=== PATIENT | female | born 1955 | race Caucasian/White ===

== ENCOUNTER → 2024-11-28 09:07 | Outpatient (REF) | payer MEDICARE, OTHER, SELFPAY ==
[2024-11-28 10:02] LABS: % Basophils 0.6 % (0-2); % Eosinophils 1.6 % (0-6); % Immature Granulocytes 0.2 % (0-0.5); % Lymphocytes 19.1 % (20.5-51.1); % Monocytes 10.5 % (1.7-9.3); Absolute Eosinophils 0.1 10^3/uL (0-0.7); Absolute Lymphocytes 0.9 10^3/uL (1.2-3.4); Absolute Monocytes 0.5 10^3/uL (0.1-0.6); Absolute Neutrophils 3.3 10^3/uL (1.4-6.5); Hematocrit 37.9 % (37.0-47.0); Hemoglobin 12.4 g/dL (12.0-16.0); Mean Corp Hgb Conc. 32.7 g/dL (33.0-37.0); Mean Corpuscular Hgb 31.7 pg (27.0-31.0); Mean Corpuscular Volume 96.9 fL (81.0-99.0); Mean Platelet Volume 9.6 fL (7.4-10.4); Nucleated Red Blood Cells % 0 %; Platelet Count 296 10^3/uL (130-400); Red Blood Cell Count 3.91 10^6/uL (4.20-5.40); Red Cell Dist. Width 13.9 % (11.5-14.5); White Blood Cell Count 4.9 10^3/uL (4.8-10.8)
[2024-11-28 10:13] LABS: INR 1.08; PT 14.4 Sec (11.4-14.6)
[2024-11-28 10:39] LABS: ALT (SGPT) 20 U/L (0-35); AST (SGOT) 29 U/L (14-36); Albumin 4.7 g/dl (3.5-5.0); Alkaline Phosphatase 50 U/L (38-126); Blood Urea Nitrogen 16 mg/dl (7-17); Calcium 9.4 mg/dl (8.4-10.2); Carbon Dioxide 29 mmol/L (22-30); Chloride 106 mmol/L (98-107); Glucose 86 mg/dl (70-99); Magnesium 2.1 mg/dl (1.6-2.3); Potassium 4.1 mmol/L (3.5-5.1); Sodium 141 mmol/L (135-145); Total Bilirubin 0.6 mg/dl (0.2-1.3); Total Protein 7.5 g/dl (6.3-8.2); eGFR > 60.00
== END ==
LOC: SDSPAT 09:07
PROVIDERS: ATTENDING PHYSICIAN Internal Medicine Cardiovascular Disease; FAMILY PHYSICIAN Family Medicine; OTHER PHYSICIAN Internal Medicine Cardiovascular Disease; OTHER PHYSICIAN Internal Medicine Rheumatology
DX: I48.91 Unspecified atrial fibrillation (principal)
CPT/HCPCS: 36415; 75572; 80053; 83735; 85025; 85610; 86850; 86900; 86901; 93005; Q9967

== ENCOUNTER 2024-12-12 07:55 | Day surgery (SDC) | payer MEDICARE, OTHER, SELFPAY ==
[2024-11-28 09:19] VITALS: BMI 17.8
[2024-12-12] VITALS (12 sets, daily range): BP systolic 95–143; BP diastolic 58–90
[2024-12-12 11:11] LABS: ACT-LR - POC 268 Seconds (116-155)
[2024-12-12 11:36] LABS: ACT-LR - POC 313 Seconds (116-155)
--- NOTE | 2024-12-12 12:09 | ITS.CL.ABL ---
Medical Customer Service Representative - Ablation
Ablation
Procedure Report:
ELECTROPHYSIOLOGY ABLATION STUDY
DATE:: December 12, 2024�����������������������������REFERRING: Dr. Babcock
INDICATION: Paroxysmal supraventricular tachycardia in the form of atrial fibrillation.��As above
HISTORY: See H and P.� As above
ANTIARRHYTHMIC DRUG: Discussed class I and class III antiarrhythmic drug therapy and the patient opted for pulmonary vein isolation
PRE-PROCEDURE SHANICE: No atrial thrombus
PRESENTING RHYTHM: Sinus bradycardia
'TIME-OUT':��called and confirmed.
SEDATION/ANESTHESIA:��provided via the anesthesia department using general anesthesia (LMA).
INTRAVENOUS/ARTERIAL ACCESS:
Right femoral venous - 8Fr
Left femoral venous - 8 Fr, 6 Fr
Ultrasound guidance for bilateral femoral vein access was utilized by me to obtain access with demonstration of normal anatomy
CHADS-VASC Score:
HAS-Bled Score
PROCEDURE:
1.��A decapolar CS catheter was placed within the CS for mapping and pacing.��This was also used as the reference catheter for the 3-D map.
2. The intracardiac ultrasound catheter was positioned in the RA to identify the FO for targeting of transseptal puncture, assist��in identification of the pulmonary vein ostia, monitoring pre and post ablation pulmonary vein flow velocities,
monitoring for 'bubble' formation during RF application as a sign of thermal injury,��and to monitor for pericardial effusion during mapping and ablation procedure.���Left atrial size, LV ejection fraction, and pulmonary vein flows were monitored
pre and post ablation procedure. The other valves were inspected and found to be free of significant regurgitation or stenosis.
3.��Half of the calculated heparin bolus was administered prior to the first transeptal puncture.��Transseptal puncture was performed to diagnose RA and LA pressure so that safety of LA mapping and ablation could be further assessed, and to access
the left atrium and pulmonary veins for mapping and ablation.��This entailed advancing an 16.8 [place] RF wire, sheath with dilator into the superior vena cava and withdrawing both (monitoring intracardiac ultrasound, fluoroscopy and tip pressure)
with the tip oriented toward the atrial septum.��The fossa ovalis was engaged (indicated by sudden displacement of the sheath tip as well as tenting of the fossa seen on intracardiac ultrasound).��Left atrial access required a pass with the
Brockenbrough needle extended.��Left atrial catheter position was confirmed by pressure monitoring (RA mean pressure 6 mm Hg and LA mean presure 8 mm Hg), LA saturation (99%),��as well as fluoroscopy.��The sheath was advanced over the dilator and
positioned in the left atrium.��This procedure was repeated for the Agilis sheath.��The remainder of the calculated heparin bolus was administered and heparin was
infused to maintain ACT at 300 -350 seconds throughout the case.
4.��RA pacing was performed via the proximal decapolar poles and LA pacing was performed via the distal decapolr poles.
5. A quadrapolar catheter was first positioned at the His position for His Bundle recording which was tagged via the 3-D Navex sytem, and then passed to the RVA for RV pacing and recording.
6. The grid and Penta spline catheter placed in each of the LIPV, LSPV, RSPV and the RIPV.��
7.��Next, a 3-D map was created using Navex.���A 3-D reconstructed CT image was compared to the 3-D Navex map to assist in anatomic interpretation, mapping and ablation.��The CT image and the NavX image were fused.
8. Total 49 lesions were given to the pulmonary veins and all of in basket pose and the roof, posterior wall, and floor of the left atrium were given in flower pose for entrance next block achieved in all 4 pulmonary veins as well as the roof
posterior wall and floor of the left atrium.
Dual noemi physiology was present after ablation but no SVT mechanism was seen.
9. Normal sinus node and AV noemi function were noted.
TOTAL FLOURO TIME: 14.1 minutes 143 mGy
TOTAL RF DURATION: 0 minutes
REVERSAL OF HEPARIN: 35 mg of protamine, slow IV administration
COMPLICATIONS:
None
Intracardiac US shows no pericardial effusion post ablation.
SUMMARY:��
Complex left atrial mapping and ablation.
Isolation of all 4 pulmonary veins as well as roof floor and posterior wall of the left atrium
RECOMMENDATIONS:
1. Ambulate in 4 hours
2. Resume anticoagulation
3.��Consider same-day discharge
4.��No changes in medications
Copy to: Dr. Babcock
--- NOTE | 2024-12-12 14:55 | W.PN.UPDATE ---
Update Note
Progress Note Update
Pt seen post PFA. Bilat groin sites without ht/bleeding, non tender. Post EKG NSR 64, no acute changes. Resume eliquis tonight at usual time. Followup with Dr. Babcock as scheduled. Home later today if groin site/tele remain stable.
== END 2024-12-12 17:01 | disposition home or self-care (01) ==
LOC: CATH 07:55
PROVIDERS: ATTENDING PHYSICIAN Internal Medicine Cardiovascular Disease; FAMILY PHYSICIAN Family Medicine; OTHER PHYSICIAN Internal Medicine Cardiovascular Disease
DX: I48.0 Paroxysmal atrial fibrillation (principal); I47.19 Other supraventricular tachycardia; I48.92 Unspecified atrial flutter; F41.9 Anxiety disorder, unspecified; M81.0 Age-related osteoporosis without current pathological fracture; Z88.8 Allergy status to other drugs, medicaments and biological substances; Z98.890 Other specified postprocedural states; E03.9 Hypothyroidism, unspecified; Z79.01 Long term (current) use of anticoagulants
CPT/HCPCS: C1732; C1894; C1730; 85347; 86900; 86901; 93005; 93656; 93657; C1733; C1766

== ENCOUNTER 2025-04-09 10:50 | Emergency (ER) | payer MEDICARE, OTHER, SELFPAY ==
[2025-04-09] VITALS (7 sets, daily range): BP systolic 94–120; BP diastolic 60–78; BMI 17.8
--- NOTE | 2025-04-09 10:58 | ED.GENMED ---
History of Present Illness
General
Chief Complaint: Chest Pain
Source: patient and spouse
Exam Limitations: none
Time Seen by Provider: 04/09/25 10:58
Nursing documentation reviewed up to this point in time: agreed with
History of Present Illness
History of Present Illness:
Note:
CHIEF COMPLAINT(S)
Shortness of breath and a feeling of tightness in the chest.
HISTORY OF PRESENT ILLNESS
The patient is a 70-year-old female who presents with complaints of shortness of breath and a sensation of tightness across the chest. The symptoms have not been previously experienced by the patient. The patient reports that the symptoms started
the day before the visit with a painful sensation in the stomach, described as severe gas pain, although no relief was noted after usual interventions. The patient is on Eliquis (apixaban) and expressed concern about a potential pulmonary embolism
(PE) despite this medication, especially given the recent onset of symptoms. She denies any history of smoking following her cardioversion procedure. The patients electrocardiogram (EKG) and lung examination were reportedly normal upon initial
evaluation.
PAST MEDICAL AND SURGICAL HISTORY
The patient has a history of cardiac ablation and is currently on Eliquis for anticoagulation. There was no mention of a recent cardiac catheterization.
MEDICATIONS
Eliquis (apixaban).
PHYSICAL EXAM
General: Alert, no acute distress.
Skin: Warm, dry.
Head: Normocephalic, atraumatic.
Neck: Supple, trachea midline.
Eye Ears, nose, mouth and throat: Oral mucosa moist.
Cardiovascular: Normal peripheral perfusion, No edema.
Respiratory: Respirations are non-labored.
Gastrointestinal: Abdomen nondistended.
Back: Normal range of motion, Normal alignment.
Musculoskeletal: Normal range of motion, normal strength.
Neurological: Alert and oriented to person, place, time, and situation, No focal neurological deficit observed.
Psychiatric: Cooperative, appropriate mood & affect.
PLAN
The patient will undergo a screening test for blood clots to assess for a potential PE. An X-ray will be performed to evaluate the heart and lungs further.
DIFFERENTIAL DIAGNOSIS
The Differential Diagnosis includes, in no particular order and is not limited to:
1. Pulmonary embolism
2. Coronary artery disease
3. Gastroesophageal reflux disease (GERD)
4. Heart failure
5. Pericarditis
6. Costochondritis
7. Anxiety-related hyperventilation
8. Pneumonia
9. Pleural effusion
10. Aortic stenosis
CARE-UPDATE
04/09/25 - 14:05
The patient shows no signs of acute coronary syndrome or pulmonary embolism, and pancreatitis is not suspected. Pain has resolved completely. The patient is stable and should follow up with their harvesting contractor in primary care. Advised to return if
any concerning symptoms develop.
EKG
My independent EKG interpretation is:
- Time of EKG: Not specified
- Rhythm: Normal sinus rhythm
- Heart Rate: Not specified
- CA Interval: Normal
- QRS Duration: Normal
- QT Interval: Normal
- [place]: Normal
- Abnormalities: None observed, no signs of ischemia
Disposition:
SUMMARY OF ENCOUNTER
The patient, a 70-year-old female, presented to the emergency department with shortness of breath and chest tightness. Initial evaluation included a normal EKG and lung examination. The patient was concerned about a potential pulmonary embolism,
despite being on apixaban for a history of atrial fibrillation. In the emergency department, the assessment included normal vital signs and resolution of symptoms. No acute coronary syndrome or pulmonary embolism was suspected. The patient was
monitored and shown to be stable.
DISPOSITION
Discharge home.
PLAN
The patient will follow up with her harvesting contractor. She was advised to continue taking apixaban as prescribed and to return to the emergency department if any new or concerning symptoms develop.
FOLLOW-UP INSTRUCTIONS
The patient should contact the office to schedule a follow-up visit with her harvesting contractor.
MEDICATION RECONCILIATION
The patient is to continue apixaban (Eliquis) as previously prescribed. No new prescriptions were provided.
MEDICAL DECISION MAKING
-Number and Complexity of Problems Addressed: Chronic conditions affecting care include past medical history of atrial fibrillation and the use of apixaban. Differential Diagnoses considered included pulmonary embolism, coronary artery disease,
gastroesophageal reflux disease (GERD), heart failure, pericarditis, costochondritis, anxiety-related hyperventilation, pneumonia, pleural effusion, and aortic stenosis.
-Data:
Category 2: My independent interpretation of the EKG indicated normal sinus rhythm, with no abnormalities.
-Risk: Consideration of Admission/Observation: Escalation of care including admission/observation was considered given the complexity and risk of the patients presenting complaint, exam findings, and/or their underlying comorbidities. However,
ultimately, I feel the patient is safe for outpatient management with close follow-up. Reasoning: Work-up reassuring, does not reveal any acute life/organ threatening processes, patients symptoms well controlled upon reevaluation, reexamination is
reassuring, vitals are stable, patient agreeable with discharge, reliable for follow-up.
DIAGNOSIS
Chest pain, unspecified (ICD-10 R07.9)
Past History
Past History
ED Past Medical History: Hyperthyroidism and Other (Chronic headaches, pancreatitis, glaucoma)
ED Past Surgical History:
Social History
Tobacco: Non-smoker
Alcohol: Occasional
Drug: None
Personal:
Living: with family
Family History
Family History: Other
Phy Exam
Physical Exam
Physical Exam:
.
Scores
Heart Score for Chest Pain Patients
STEMI patient?: No
History: Slightly or Non-Suspicious
ECG: Normal
Age: >/= 65 years
Risk Factors: 1 or 2 Risk Factors
Troponin: </= Normal Limit
Heart Score for Chest Pain Patients: 3
Heart Score Risk: 2.5% MACE over next 6 weeks
Course
Orders/Labs/Results
Orders:
Orders
04/09/25 10:56
EKG [Electrocardiogram (*1)] Urgent
Reason for Study: Tachycardia
04/09/25 10:57
EKG- Treatment ONCE
04/09/25 11:02
Complete Blood Count/With Diff Urgent
Comprehensive Metabolic Panel Urgent
D-Dimer Urgent
Comment: ADD
Lipase Urgent
PT/INR [Prothrombin Time] Urgent
Troponin I Urgent
04/09/25 11:17
Add On- LAB Urgent
Tests Added?: d-dimer
04/09/25 11:18
CR Chest - 2 Views Urgent
Comment:
Reason For Exam: chest pain
Abnormal Lab Results
04/09/25
11:02
RBC 3.93 L 10^6/uL
(4.20-5.40)
MCH 31.6 H pg
(27.0-31.0)
MCHC 32.2 L g/dL
(33.0-37.0)
RDW 14.6 H %
(11.5-14.5)
Absolute Neuts (auto) 8.7 H 10^3/uL
(1.4-6.5)
Absolute Lymphs (auto) 0.6 L 10^3/uL
(1.2-3.4)
Absolute Monos (auto) 0.9 H 10^3/uL
(0.1-0.6)
Neutrophils % 84.8 H %
(42.2-75.2)
Lymphocytes % 5.4 L %
(20.5-51.1)
PT 14.9 H Sec
(11.4-14.6)
Carbon Dioxide 31 H mmol/L
(22-30)
Glucose 101 H mg/dl
(70-99)
04/09/25 11:02
04/09/25 11:02
Vital Signs
Initial and Last Documented VS:
Initial Vital Signs
Temp Pulse Resp BP Pulse Ox
98.3 F 80 16 120/69 100
04/09/25 10:51 04/09/25 10:51 04/09/25 10:51 04/09/25 10:51 04/09/25 10:51
Last Documented Vital Signs
Temp Pulse Resp BP Pulse Ox
98.3 F 81 15 101/60 100
04/09/25 10:51 04/09/25 14:00 04/09/25 14:00 04/09/25 14:00 04/09/25 14:05
*Pulse Oximetry
SaO2: 100
Oxygen Mode of Delivery: Room air
Patient hypoxic: no
*Critical Care Note
Total Time (30-74mins, 75-104mins- exclusive of procedures): Not Applicable
ED Attending Note
-
Portions of this chart may have been created with voice recognition software.� Occasional wrong word or��sound alike� substitutions may have occurred due to the inherent limitations of voice recognition software.
Discharge Plan
Departure
Patient Disposition: Home (Routine Discharge)
Date of Disposition: 04/09/25
Time of Disposition: 14:02
Patient with high blood pressure during this ER visit?: No
Condition: Good
Discharge Problem:
Chest pain
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
Prescriptions:
No Action
levothyroxine 50 MCG tablet
50 mcg PO SUTUWETHSA
Tension Headache 500-65 mg Tablet
1 tab PO PRN PRN (Reason: headaches)
brinzolamide 1 % Drops,Suspension
1 drp LEFT EYE BID
flaxseed oil 1,000 mg Capsule
1,000 mg PO QPM
lactase [Dairy Relief] 9,000 unit Tablet
9,000 unit PO PRN PRN (Reason: when she eats dairy)
levothyroxine 50 mcg Tablet
75 mcg PO MOFR
docusate sodium [Colace] 100 mg Capsule
100 mg PO BID
simethicone 125 mg Tablet
125 mg PO TIDPRN PRN (Reason: constipation)
timolol maleate 0.5 % drops
1 drp LEFT EYE BID
ascorbic acid (vitamin C) [Vitamin C] 500 mg Tablet Extended Release
500 mg PO DAILY
Multivitamin 50 Plus Tablet
1 tab PO DAILY
psyllium husk [Fiber-Caps (psyllium husk)] 0.52 gram Capsule
1 g PO QPM
Systane (PF) 0.4-0.3 % Dropperette
1 drp OPHTHALMIC (EYE) 6XD PRN (Reason: dryness)
calcium carbonate-vitamin D3 [Calcium 500 + D] 500 mg-10 mcg (400 unit) Tablet
1 tab PO QPM
Eliquis 5 mg Tablet
5 mg PO BID
Vyzulta 0.024 % Drops
1 drp LEFT EYE HS
Evenity 105 mg/1.17 mL Syringe
210 mg SC QMONTH
Probiotic 3 billion cell Capsule
3,000 mmu cells PO DAILY
metoprolol tartrate 25 mg Tablet
12.5 mg PO BID
Referrals:
Abigail Santos DO [Family Provider, Family Practice]
Interventions
Interventions:
*Risk Screen - Suicide Last Done: 04/09/25 10:51
*General Assessment Last Done: 04/09/25 10:51
*Neglect/Abuse Screening Last Done: 04/09/25 10:51
*ED- Fall Risk Assessment Last Done: 04/09/25 10:51
*ED COVID-19 Vaccine History Last Done: 04/09/25 10:51
*ED Influenza Vaccine History Last Done: 04/09/25 10:51
ED- Cardiac Assessment Last Done: 04/09/25 10:59
Discharge Date and Time
Print Language: JAPANESE
[2025-04-09 11:24] LABS: Hematocrit 38.5 % (37.0-47.0); Hemoglobin 12.4 g/dL (12.0-16.0); Mean Corp Hgb Conc. 32.2 g/dL (33.0-37.0); Mean Corpuscular Volume 98.0 fL (81.0-99.0); Nucleated Red Blood Cells % 0 %; Platelet Count 266 10^3/uL (130-400); Red Cell Dist. Width 14.6 % (11.5-14.5)
[2025-04-09 11:33] LABS: ALT (SGPT) 20 U/L (0-35); AST (SGOT) 27 U/L (14-36); Albumin 4.4 g/dl (3.5-5.0); Blood Urea Nitrogen 16 mg/dl (7-17); Calcium 9.1 mg/dl (8.4-10.2); Carbon Dioxide 31 mmol/L (22-30); Chloride 104 mmol/L (98-107); Estimated Creatinine Clearance 59 ml/min; Glucose 101 mg/dl (70-99); Lipase 119 U/L (23-300); Potassium 4.0 mmol/L (3.5-5.1); Sodium 139 mmol/L (135-145); Total Protein 7.4 g/dl (6.3-8.2); eGFR > 60.00
[2025-04-09 11:40] LABS: INR 1.14; PT 14.9 Sec (11.4-14.6)
[2025-04-09 11:42] LABS: Alkaline Phosphatase 54 U/L (38-126)
[2025-04-09 11:44] LABS: Troponin I < 0.012 ng/ml
[2025-04-09 12:15] LABS: D-Dimer < 0.27 ug/mlFEU (0.00-0.50)
== END 2025-04-09 14:28 | disposition home or self-care (01) ==
LOC: EMR 10:50
PROVIDERS: EMERGENCY PHYSICIAN Emergency Medicine; FAMILY PHYSICIAN Family Medicine
DX: R07.9 Chest pain, unspecified (principal); R00.0 Tachycardia, unspecified; I48.91 Unspecified atrial fibrillation; H40.9 Unspecified glaucoma; E05.90 Thyrotoxicosis, unspecified without thyrotoxic crisis or storm; Z79.01 Long term (current) use of anticoagulants
CPT/HCPCS: 99284; 71046; 80053; 83690; 84484; 85025; 85379; 85610; 93005

== ENCOUNTER 2025-04-09 18:17 | Emergency (ER) | payer MEDICARE, OTHER, SELFPAY ==
[2025-04-09 18:31] VITALS: BP 133/67
--- NOTE | 2025-04-09 20:11 | ED.GENMED ---
History of Present Illness
General
Chief Complaint: Chest Problem
Source: patient
Exam Limitations: none
Time Seen by Provider: 04/09/25 20:09
History of Present Illness
History of Present Illness:
70-year-old female complaining of ongoing chest pain rating to the back. Somewhat pleuritic in nature. Started this morning upon awakening. Has been persistent. Seen this morning for same. Negative cardiac workup negative chest x-ray negative
D-dimer. Patient is anticoagulated. LFTs and lipase were negative this morning. History of pancreatitis. Yesterday symptoms started with vague abdominal symptoms but transition to a lower mid chest pain that was pleuritic and radiating to the
back.
Past History
Past History
ED Past Medical History: Hyperthyroidism and Other (Chronic headaches, pancreatitis, glaucoma)
ED Past Surgical History:
Social History
Tobacco: Non-smoker
Alcohol: Occasional
Drug: None
Personal:
Living: with family
Family History
Family History: Other
Review of Systems
Review of Systems
All Other Systems: Not applicable
Constitutional: Denies fever
: Reports no symptoms
Phy Exam
Physical Exam
Physical Exam:
GENERAL: Alert and oriented in no apparent distress
EYE: Orbits normal.
NECK: Supple, no significant adenopathy.
ENT: Pharynx without erythema
CARDIAC: Regular rate and rhythm without any obvious murmurs.
LUNGS: Clear breath sounds,normal
ABDOMEN: Soft, without focal tenderness or distention
NEUROLOGICAL: Alert and oriented , grossly non-focal
SKIN: Warm and dry, no rash or lesion, no discoloration, skin intact.
MUSCULOSKELETAL: No edema,no deformity.Good color
PSYCH: Normal and appropriate interaction.
Course
Orders/Labs/Results
Orders:
Orders
04/09/25 18:33
Electrocardiogram (*1) Urgent
Reason for Study: Chest Pain
EKG- Treatment ONCE
04/09/25 20:30
CT Chest/abd/pelvis Angio W/wo Urgent
Comment:
Reason For Exam: Chest pain rating to the back with abdominal pain
Cardiac Monitoring- Treatment ONCE
IV Insert/Care/Rem.- Treatment PRN
0.9% Sodium Chloride 500 ml [Nss] 500 ml IV BOLUS
04/09/25 20:38
Complete Blood Count/With Diff Urgent
Comprehensive Metabolic Panel Urgent
Lipase Urgent
Troponin I Urgent
04/09/25 21:43
US Abdomen Limited Urgent
Comment:
Reason For Exam: Lower chest pain bandlike to back
Abnormal Lab Results
04/09/25
20:38
WBC 11.4 H 10^3/uL
(4.8-10.8)
MCH 31.7 H pg
(27.0-31.0)
Absolute Neuts (auto) 9.7 H 10^3/uL
(1.4-6.5)
Absolute Lymphs (auto) 0.6 L 10^3/uL
(1.2-3.4)
Absolute Monos (auto) 1.1 H 10^3/uL
(0.1-0.6)
Neutrophils % 84.9 H %
(42.2-75.2)
Lymphocytes % 5.1 L %
(20.5-51.1)
Monocytes % 9.6 H %
(1.7-9.3)
Glucose 111 H mg/dl
(70-99)
Total Protein 8.3 H g/dl
(6.3-8.2)
04/09/25 20:38
04/09/25 20:38
Vital Signs
Initial and Last Documented VS:
Initial Vital Signs
Temp Pulse Resp BP Pulse Ox
97.9 F 79 16 133/67 98
04/09/25 18:31 04/09/25 18:31 04/09/25 18:31 04/09/25 18:31 04/09/25 18:31
Last Documented Vital Signs
Temp Pulse Resp BP Pulse Ox
98.5 F 73 21 136/59 98
04/09/25 20:21 04/09/25 22:45 04/09/25 22:45 04/09/25 22:20 04/09/25 22:45
MDM/Problems Addressed
Differential Diagnosis Includes:
Patient with ongoing chest pain rating to the back. Highly doubt cardiac. Atypical. Cardiac testing this morning was negative. Will repeat EKG and troponin for completeness. Highly doubt pancreatitis which she has had in the past. Lipase was
normal earlier. We will repeat the lipase for completeness. With chest pain rating to the back would have to consider a vascular emergency. Although unlikely given the bounce back and symptoms we will get a CT angio.
*Radiology
Radiology exam reviewed: radiology read reviewed
*Pulse Oximetry
SaO2: 98
Oxygen Mode of Delivery: Room air
Patient hypoxic: no
*EKG
Interpreted by ED Provider?: Yes
Interpretation: normal
Comparison EKG: no changes
Heart Rate: 73
Rate: normal
Rhythm: sinus
[place]: normal axis
Interval: normal interval
QRS Pattern: normal QRS
Ischemia: no ischemia
*Critical Care Note
Total Time (30-74mins, 75-104mins- exclusive of procedures): Not Applicable
Update Note
Update Note:
Repeat troponin and EKG within normal limits. Ongoing continuous symptoms throughout the day with multiple negative troponins and EKGs. This does not appear to be cardiac. LFTs normal. Lipase normal. Minimal nonspecific leukocytosis. No acute
surgical findings. Clinically stable and nontoxic. Suspect gastritis/GERD. Will take a Pepcid today. Copy of reports given to patient for close follow-up
ED Attending Note
-
Portions of this chart may have been created with voice recognition software.� Occasional wrong word or��sound alike� substitutions may have occurred due to the inherent limitations of voice recognition software.
Discharge Plan
Departure
Patient Disposition: Home (Routine Discharge)
Date of Disposition: 04/09/25
Time of Disposition: 22:54
Patient with high blood pressure during this ER visit?: No
Discharge Problem:
Chest pain, Abdominal/epigastric pain
Instructions: Chest Pain (DC), Abdominal pain in adults (DC)
Prescriptions:
No Action
levothyroxine 50 MCG tablet
50 mcg PO SUTUWETHSA
Tension Headache 500-65 mg Tablet
1 tab PO PRN PRN (Reason: headaches)
brinzolamide 1 % Drops,Suspension
1 drp LEFT EYE BID
flaxseed oil 1,000 mg Capsule
1,000 mg PO QPM
lactase [Dairy Relief] 9,000 unit Tablet
9,000 unit PO PRN PRN (Reason: when she eats dairy)
levothyroxine 50 mcg Tablet
75 mcg PO MOFR
docusate sodium [Colace] 100 mg Capsule
100 mg PO BID
simethicone 125 mg Tablet
125 mg PO TIDPRN PRN (Reason: constipation)
timolol maleate 0.5 % drops
1 drp LEFT EYE BID
ascorbic acid (vitamin C) [Vitamin C] 500 mg Tablet Extended Release
500 mg PO DAILY
Multivitamin 50 Plus Tablet
1 tab PO DAILY
psyllium husk [Fiber-Caps (psyllium husk)] 0.52 gram Capsule
1 g PO QPM
Systane (PF) 0.4-0.3 % Dropperette
1 drp OPHTHALMIC (EYE) 6XD PRN (Reason: dryness)
calcium carbonate-vitamin D3 [Calcium 500 + D] 500 mg-10 mcg (400 unit) Tablet
1 tab PO QPM
Eliquis 5 mg Tablet
5 mg PO BID
Vyzulta 0.024 % Drops
1 drp LEFT EYE HS
Evenity 105 mg/1.17 mL Syringe
210 mg SC QMONTH
Probiotic 3 billion cell Capsule
3,000 mmu cells PO DAILY
metoprolol tartrate 25 mg Tablet
12.5 mg PO BID
Referrals:
Abigail Santos DO [Family Provider, Family Practice] - Follow up in 2-3 days
Activity Restrictions/Additional Instructions:
Light diet for the next 2 days
Try taking a Pepcid a day
Follow-up closely with your primary physician
Interventions
Interventions:
*Risk Screen - Suicide Last Done: 04/09/25 20:18
*General Assessment Last Done: 04/09/25 20:19
*Neglect/Abuse Screening Last Done: 04/09/25 20:18
*ED- Fall Risk Assessment Last Done: 04/09/25 20:18
*ED COVID-19 Vaccine History Last Done: 04/09/25 20:18
*ED Influenza Vaccine History Last Done: 04/09/25 20:18
*Nursing Disposition Last Done: 04/09/25 23:00
ED- Cardiac Assessment Last Done: 04/09/25 22:05
ED- Pulmonary Assessment Last Done: 04/09/25 22:05
Discharge Date and Time
Discharge Date/Time: 04/09/25 23:01
Print Language: PALAU[place]
[2025-04-09 20:15] VITALS: BP 119/80
[2025-04-09 20:21] VITALS: BP 119/80; BMI 18.3
[2025-04-09] MEDS: NSS 500 IV (20:39)
[2025-04-09 20:52] LABS: Hematocrit 39.9 % (37.0-47.0); Hemoglobin 13.4 g/dL (12.0-16.0); Mean Corp Hgb Conc. 33.6 g/dL (33.0-37.0); Mean Corpuscular Volume 94.3 fL (81.0-99.0); Nucleated Red Blood Cells % 0 %; Platelet Count 292 10^3/uL (130-400); Red Cell Dist. Width 14.5 % (11.5-14.5)
[2025-04-09 21:00] VITALS: BP 116/68
[2025-04-09 21:19] LABS: ALT (SGPT) 22 U/L (0-35); AST (SGOT) 30 U/L (14-36); Albumin 5.0 g/dl (3.5-5.0); Alkaline Phosphatase 66 U/L (38-126); Blood Urea Nitrogen 16 mg/dl (7-17); Calcium 10.1 mg/dl (8.4-10.2); Carbon Dioxide 27 mmol/L (22-30); Chloride 100 mmol/L (98-107); Estimated Creatinine Clearance 52 ml/min; Glucose 111 mg/dl (70-99); Lipase 100 U/L (23-300); Potassium 4.1 mmol/L (3.5-5.1); Sodium 136 mmol/L (135-145); Total Protein 8.3 g/dl (6.3-8.2); eGFR > 60.00
[2025-04-09 21:24] LABS: Troponin I < 0.012 ng/ml
[2025-04-09 22:20] VITALS: BP 136/59
== END 2025-04-09 23:01 | disposition home or self-care (01) ==
LOC: EMR 18:17
PROVIDERS: EMERGENCY PHYSICIAN Emergency Medicine; FAMILY PHYSICIAN Family Medicine
DX: R07.9 Chest pain, unspecified (principal); R10.13 Epigastric pain; H40.9 Unspecified glaucoma; E05.90 Thyrotoxicosis, unspecified without thyrotoxic crisis or storm; Z79.01 Long term (current) use of anticoagulants
CPT/HCPCS: 99284; 71046; 71275; 74174; 76705; 80053; 83690; 84484; 85025; 85379; 85610; 93005; Q9967